=== PATIENT | female | born 1990 | race African-American/Black ===

== ENCOUNTER 2020-12-02 10:19 | Emergency (ER) | payer OTHER, SELFPAY ==
[2020-12-02 10:30] VITALS: BP 98/64; PULSE 73; RESP 12; TEMP 37.1; O2SAT 100
--- NOTE | 2020-12-02 10:32 | ED.GENADULT ---
HPI - General Adult General Chief complaint: Neuro Symptoms/Deficit Stated complaint: dizzy/nausea Time Seen by Provider: 12/02/20 10:48 Source: patient and RN notes reviewed Mode of arrival: ambulatory Limitations: no limitations History of Present Illness HPI narrative: 30-year-old female presents concern for dizziness and nausea. Reports this morning when she woke up and stood up out of bed she had a room spinning sensation. She reports standing up triggers the sensation, laying still with her eyes closed resolves the room spinning. She denies any headache, weakness or numbness in any extremity, head trauma, history of head trauma. She denies vomiting, diarrhea, fever, body aches, chills, sweats, rhinorrhea, nasal congestion, ear pain, sore throat. MD complaint: Dizziness Related Data Home Medications Medication Instructions Recorded Confirmed dicyclomine 10 mg PO TID 12/02/20 12/02/20 Allergies Allergy/AdvReac Type Severity Reaction Status Date / Time No Known Allergies Allergy Verified 12/02/20 10:43 Review of Systems Review of Systems: Narrative: CONSTITUTIONAL: Denies malaise, chills, sweats, or fever. EYES: Denies visual changes ENT: Denies rhinorrhea, congestion, sinus pain, otalgia or sore throat. CARDIOVASCULAR: Denies chest pain, palpitations, or edema. RESPIRATORY: Denies cough or dyspnea. GASTROINTESTINAL: Denies abdominal pain, vomiting, diarrhea. Reports nausea MUSCULOSKELETAL: Denies myalgia. NEUROLOGIC: Denies numbness, weakness, or headache. Reports dizziness All systems reviewed & are unremarkable except as noted in HPI and below PMFSH Comments At time of signature, agree with nursing past medical, surgical, social and family history. There is no relevant family history pertinent to the presenting complaint Exam Narrative: Exam Narrative: GENERAL: Well-appearing, well-nourished, and in no acute distress. HEAD: Normocephalic, atraumatic. EYES: PERRLA, conjunctivae clear, and EOMI. ENT: Nares clear, turbinates pink, no rhinorrhea or epistaxis. Mucous membranes moist. Right TM pearly sheppard with sharp light reflex, left TM dull with effusion; no tragal tenderness. Oropharynx without erythema or lesions. Tonsils not enlarged and without exudate. NECK: Supple. No lymphadenopathy. CHEST: No respiratory distress. Speaks in full sentences. HEART: Regular rate and rhythm EXTREMITIES: Normal range of motion. No edema. Normal strength and sensation. SKIN: Warm, dry, no rash. NEURO: Alert and oriented x3. No focal deficits. Cranial nerves II through XII grossly intact. Clovis-Hallpike test positive on the left for vertigo PSYCH: Normal mood and affect Course Course Emergency Course: Patient is aware of diagnosis, understands and agrees to treatment plan. Anticipatory guidance given. Patient agrees to follow-up as directed and is aware of reasons to seek care at the emergency department. Portions of this record may have been created with voice recognition software Vital Signs Vital signs: Vital Signs Temperature 98.7 F 12/02/20 10:30 Pulse Rate 73 12/02/20 10:30 Respiratory Rate 12 12/02/20 10:30 Blood Pressure 98/64 L 12/02/20 10:30 Pulse Oximetry 100 12/02/20 10:30 Temperature 98.7 F 12/02/20 10:30 Pulse Rate 73 12/02/20 10:30 Respiratory Rate 12 12/02/20 10:30 Blood Pressure 98/64 L 12/02/20 10:30 Pulse Oximetry 100 12/02/20 10:30 Reviewed. Medical Decision Making MDM Narrative Medical decision making narrative: Exam findings show no acute concerns or changes; patient is non-toxic appearing and is in no distress. Patient is appropriate for outpatient treatment and follow-up. Differential Diagnosis Differential Diagnosis: Vertigo, otitis media, otitis effusion, viral illness, head injury, cerebrovascular accident Vital Signs Vital Signs: Vital Signs Temperature 98.7 F 12/02/20 10:30 Pulse Rate 73 12/02/20 10:30 Respiratory Rate 12 12/02/20 10:
== END 2020-12-02 11:01 | disposition home or self-care (01) ==
PROVIDERS: Emergency Provider Nurse Practitioner; PCP Nurse Practitioner Adult Health
DX: H81.12 Benign paroxysmal vertigo, left ear (principal)
CPT/HCPCS: 99213; G0463